=== PATIENT | female | born 1975 | race African-American/Black ===

== ENCOUNTER 2017-01-15 23:18 | Emergency (ER) | payer OTHER ==
--- NOTE | 2017-01-16 00:51 | ER Document Report ---
ED Extremity Problem, Lower - General Mode of Arrival: Wheelchair Information source: Patient - General Chief Complaint: Leg Pain Stated Complaint: LEG PAIN Time Seen by Provider: 01/16/17 00:34 Notes: Patient is a 41 year old female presenting to the emergency department for sudden pain in her left ankle/foot. Patient states she was loading the vehicle to come see her daughter when she got a sudden pain in her foot. Patient states it was so painful that she could not touch her foot or move. Patient states she had increased pain when walking. Patient denies any injury or trauma to her foot or ankle. Patient states that she took 2 Aspirin and did have some slight relief a couple hours after. Patient denies getting bit by any type of ant, spider or other insect. Patient states that her pain has radiated from her ankle into her knee and upper leg. Patient denies any fever. Patient denies any history of gout. Patient did recently drive from [facility] to this area. Patient has no known drug allergies. Patient states she just had a good bill of health from her primary care physician recently. (TWILA BELLE) - Related Data Allergies/Adverse Reactions: No Known Allergies Allergy (Unverified 01/15/17 23:41) Past Medical History - General Information source: Patient - Social History Smoking Status: Never Smoker Cigarette use (# per day): No Chew tobacco use (# tins/day): No Smoking Education Provided: No Frequency of alcohol use: None Drug Abuse: None Family History: None Patient has suicidal ideation: No Patient has homicidal ideation: No - Medical History Medical History: Negative Surgical Hx: Negative Review of Systems - Review of Systems Constitutional: No symptoms reported. denies: Fever Musculoskeletal: See HPI, Joint pain Skin: See HPI, Other Neurological/Psychological: No symptoms reported Physical Exam - Vital signs Interpretation: Normal - Vital signs Vitals: Temp Pulse Resp BP Pulse Ox 98.2 F 90 14 117/52 L 100 01/15/17 23:40 01/15/17 23:40 01/15/17 23:40 01/15/17 23:40 01/15/17 23:40 - Notes Notes: GENERAL: Alert, interacts well. No acute distress. HEAD: Normocephalic, atraumatic. EYES: Pupils equal, round, and reactive to light. Extraocular movements intact. ENT: Oral mucosa moist, tongue midline. NECK: Full range of motion. Supple. Trachea midline. LUNGS: No respiratory distress. EXTREMITIES: Moves all 4 extremities spontaneously. No erythema or edema to the lower extremities bilaterally including the ankle and foot. Lateral and medial malleolus are not significantly different in size when comparing both lower extremities. Both feet are the same temperature. Slight click to the lateral aspect when manipulating the left patellar. No ligamentous laxity. Anterior and posterior drawer test is negative. Capillary refill is <3 seconds. Radial and dorsalis pedis pulses 2/4 bilaterally. No cyanosis. NEUROLOGICAL: Alert and oriented x3. Normal speech. PSYCH: Normal affect, normal mood. SKIN: Warm, dry, normal turgor. No rashes or lesions noted. (TWILA BELLE) Course - Re-evaluation Re-evalutation: 01/16/17 00:52 No swelling, no rash, no trauma, no signs of infection, no injury. No indication for x-ray. Given the degree of pain, the fact that she is female, has a Mirena and recently drove up here from [facility] it is reasonable to perform a Doppler ultrasound to rule out DVT. This will be performed as an outpatient tomorrow morning, patient is written a order to have this performed as an outpatient. Patient will be discharged home at this time. There is no gross swelling, there is no shortness of breath when the pain is not there. No indication for CT of the chest or blood work at this time. Patient will return should she develop fevers, rash, redness or swelling. Discussed that at present I do not see any signs of infected joint, gout or shingles. (ROMELIA POWERS) - Vital Signs Vital signs: Temp Pulse Resp BP Pulse Ox 98.2 F 85 14 115/60 100 01/15/17 23:40 01/16/17 01:03 01/15/17 23:40 01/16/17 01:03 01/15/17 23:40 Discharge - Discharge Clinical Impression: Ankle pain, left Qualifiers: Chronicity: acute Qualified Code(s): M25.572 - Pain in left ankle and joints of left foot Condition: Stable Disposition: HOME, SELF-CARE Additional Instructions: I do not know exactly what caused your ankle pain tonight. I do not see any signs of infection, gout or shingles at this time. I have written you in order to have an ultrasound to rule out blood clot performed in the morning. Please follow the instructions on the sheet and call to arrange a time to have this performed. Return for fevers, worsening pain, redness, swelling or rash to the area. You were offered an Tramaine wrap for your ankle, you stated that you tried it earlier and it did not help. Please feel to free to try it again. Please use ibuprofen (Motrin or Advil) 600-800 mg every 8 hours as needed for pain. You may also use acetaminophen (Tylenol) 1000 mg every 4-6 hours as needed for pain. Please be aware that many medications contain acetaminophen, do not exceed a total of 1000 mg of acetaminophen every 6 hours. Forms: Follow-Up Outpatient Testing Scribe Attestation: 01/16/17 05:47 I personally performed the services described in the documentation, reviewed and edited the documentation which was dictated to the scribe in my presence, and it accurately records my words and actions. (ROMELIA POWERS) Scribe Documentation - Scribe Written by Melida:: Melida Rocha, 01/16/2017 3:35 acting as scribe for :: Alyssa
[2017-01-16 01:34] VITALS: BP 115/60
== END 2017-01-16 01:03 | disposition home or self-care (01) ==
LOC: ER 23:18
DX: M25.572 Pain in left ankle and joints of left foot (principal); M79.672 Pain in left foot; Z97.5 Presence of (intrauterine) contraceptive device
CPT/HCPCS: 99283

== ENCOUNTER → 2017-01-19 | Outpatient (CLI) | payer OTHER ==
--- NOTE | 2017-01-19 15:51 | XCELERA REPORT ---
[address] [address] Lower Extremity Venous Evaluation Name: ANGUS ESCOBAR Age: 41 yrs Gender: Female : 1975 Patient Status: Outpatient Patient Location: Study Date: 01/19/2017 01:53 PM Procedure: Color flow and duplex imaging of the veins of the left lower extremity as well as the right Common Femoral vein. Reason For Study: LLE PAIN Ordering Physician: ROMELIA POWERS Performed By: Tahir Cheema Right Sided Venous Evaluation The right common femoral vein is fully compressible. Spontaneous and phasic flow is present in the right common femoral vein. Left Sided Venous Evaluation Normal vessel filling wall to wall, compression and augmentation as well as Colour flow down to the infrageniculate veins. Interpretation Summary No duplex evidence of DVT or obstruction in the left lower extremity nor in the right Common Femoral vein. : ROMELIA POWERS > Frederick Self
== END ==
LOC: SP 13:46
PROVIDERS: ATTEND Emergency Medicine
DX: M25.572 Pain in left ankle and joints of left foot (principal); M79.662 Pain in left lower leg
CPT/HCPCS: 93971